=== PATIENT | female | born 1955 | race Two or more races ===

== ENCOUNTER 2020-11-07 21:19 | Emergency (ER) | payer MEDICAID, MEDICARE ==
[~2020-11-07] VITALS: Ht 165.1 cm; Wt 68.0 kg
[2020-11-08 04:17] VITALS: BP 129/72
== END 2020-11-08 04:22 | disposition home or self-care (01) ==
LOC: ER 21:19
DX: U07.1 COVID-19 (principal); E11.9 Type 2 diabetes mellitus without complications
CPT/HCPCS: 99283; C9803; U0003